=== PATIENT | female | born 1960 | race African-American/Black ===

== ENCOUNTER 2024-08-04 23:31 | Emergency (ER) | payer OTHER ==
[~2024-08-04] VITALS: Ht 160 cm; Wt 98.4 kg
[2024-08-05] MEDS: ONDANSETRON HCL INJ 2MG/ML 2ML 2 MG/ML VIAL IV STA (00:42)
[2024-08-05] MEDS: SODIUM CHLORIDE 0.9% 1000ML 1,000 ML IV ONE (00:42)
[2024-08-05] MEDS: KETOROLAC TROMETHAMINE 30 MG/ML VIAL IV STA (00:42)
[2024-08-05] MEDS ORDERED: FLOMAX0.4 MG PO (01:27)
[2024-08-05] MEDS ORDERED: ONDANSETRON ODT4 MG PO (01:28)
[2024-08-05 01:40] VITALS: PULSE 75; RESP 15; TEMP 98
[2024-08-05 01:42] VITALS: BP 156/72; PULSE 75; RESP 15; TEMP 98; O2SAT 98
== END 2024-08-05 01:45 | disposition home or self-care (01) ==
LOC: FSED 23:41
DX: R30.0 Dysuria (principal); N13.2 Hydronephrosis with renal and ureteral calculous obstruction; R10.30 Lower abdominal pain, unspecified; I10 Essential (primary) hypertension; E78.5 Hyperlipidemia, unspecified; F17.210 Nicotine dependence, cigarettes, uncomplicated
CPT/HCPCS: 74176; 80053; 81003; 85025; 96374; 96376; 99284; J1885; J2405; J7030